=== PATIENT | male | born 1960 ===

== ENCOUNTER 2018-05-23 23:33 | Emergency (ER) | payer MEDICARE, MEDICAID ==
[2018-05-23 23:42] VITALS: BMI 33.3
[2018-05-23 23:52] VITALS: RESP 18
[2018-05-23] MEDS ORDERED: Sodium Chloride 0.9% 1,000 ML IV STA (23:59)
--- NOTE | 2018-05-24 00:03 | ED PDOC ---
Arrival/HPI - General Chief Complaint: High Blood Sugar Time Seen by Provider: 05/23/18 23:39 Historian: Patient - History of Present Illness Narrative History of Present Illness (Text): 05/23/18 23:58 57 year old male, whose past medical history includes diabetes on insulin, hypertension, and hyperlipidemia, presents to the emergency department complaining of elevated blood sugar today. Patient reports his sugar has been as high as 500. Patient also reports occassional dizziness, but denies any fever , chills, chest pain, shortness of breath,abdominal pain,vomiting, diarrhea, urinary symptoms, back pain, neck pain, headache, or any other complaints. PMD: Dr. Obrien Time/Duration: Other (today) Symptom Onset: Gradual Symptom Course: Unchanged Activities at Onset: Light Context: Home Past Medical History - Provider Review Nursing Documentation Reviewed: Yes - Cardiac Hx Hypertension: Yes - Musculoskeletal/Rheumatological Hx Arthritis: Yes - Psychiatric Hx Substance Use: No - Anesthesia Hx Anesthesia: No Family/Social History - Physician Review Nursing Documentation Reviewed: Yes Family/Social History: No Known Family HX Smoking Status: Never Smoked Hx Alcohol Use: Yes Frequency of alcohol use: Socially Hx Substance Use: No Allergies/Home Meds Allergies/Adverse Reactions: Allergies No Known Allergies Allergy (Verified 05/23/18 23:42) Review of Systems - Physician Review All systems were reviewed & negative as marked: Yes - Review of Systems Constitutional: absent: Fevers, Other (Chills) Respiratory: absent: SOB Cardiovascular: absent: Chest Pain Gastrointestinal: Nausea. absent: Diarrhea, Vomiting Genitourinary Male: absent: Dysuria, Frequency, Hematuria Musculoskeletal: Other (Malaise). absent: Back Pain, Neck Pain Neurological: Dizziness. absent: Headache Physical Exam Vital Signs Reviewed: Yes Vital Signs Temp Pulse Resp BP Pulse Ox 05/24/18 03:37 98 05/24/18 03:00 98.9 F 73 18 133/70 98 05/23/18 23:52 78 18 131/74 99 Blood Pressure: Normal Pulse: Regular Respiratory Rate: Normal Appearance: Positive for: Well-Appearing, Non-Toxic, Comfortable Pain Distress: None Mental Status: Positive for: Alert and Oriented X 3 Finger Stick Blood Glucose: 409 - Systems Exam Head: Present: Atraumatic, Normocephalic Pupils: Present: PERRL Extroacular Muscles: Present: EOMI Conjunctiva: Present: Normal Mouth: Present: Moist Mucous Membranes Neck: Present: Normal Range of Motion Respiratory/Chest: Present: Clear to Auscultation, Good Air Exchange. No: Respiratory Distress, Accessory Muscle Use Cardiovascular: Present: Regular Rate and Rhythm, Normal S1, S2. No: Murmurs Abdomen: No: Tenderness, Distention, Peritoneal Signs Back: Present: Normal Inspection Upper Extremity: Present: Normal Inspection. No: Cyanosis, Edema Lower Extremity: Present: Normal Inspection. No: Edema Neurological: Present: GCS=15, CN II-XII Intact, Speech Normal Skin: Present: Warm, Dry, Normal Color. No: Rashes Psychiatric: Present: Alert, Oriented x 3, Normal Insight, Normal Concentration Medical Decision Making ED Course and Treatment: 05/23/18 23:50 Impression: 57 year old male presents complaining of elevated blood sugar today associated with occasional dizziness. Plan: -- EKG -- Labs -- Chest X-ray -- IV Fluids, Humulin R -- Reassess and disposition Progress Notes: 05/24/18 01:24 CXR Impression: As read by me, no acute process. 05/24/18 03:14 EK G shows NSR at 67 BPM with acute changes. Interpreted by me. 05/24/18 03:23 On re-evaluation, patient feels better and is in no acute distress. I have discussed the results and plan with the patient, who expresses understanding. Patient in agreement with plan to be discharged home. Patient is stable for discharge. Patient was instructed to follow up with physician or return if symptoms worsen or new concerning symptoms arise. - Lab Interpretations Lab Results: 05/24/18 00:19 05/24/18 00:19 Lab Results 05/24/18 03:20: POC Glucose (mg/dL) 209 H 05/24/18 02:05: POC Glucose (mg/dL) 284 H 05/24/18 00:19: WBC 6.1, RBC 4.52, Hgb 13.7 L, Hct 39.9 L, MCV 88.3, MCH 30.3, MCHC 34.3, RDW 13.1, Plt Count 177, MPV 10.4 05/24/18 00:19: Sodium 136, Potassium 4.0, Chloride 104, Carbon Dioxide 21, Anion Gap 16, BUN 15, Creatinine 0.8, Est GFR ( Amer) > 60, Est GFR (Non- Af Amer) > 60, Random Glucose 454 H*, Calcium 9.3, Total Bilirubin 0.4, AST 25, ALT 27, Alkaline Phosphatase 112, Lactate Dehydrogenase 518, Total Creatine Kinase 123, Troponin I < 0.01, Total Protein 7.0, Albumin 4.1, Globulin 3.0, Albumin/Globulin Ratio 1.4 I have reviewed the lab results: Yes - RAD Interpretation Radiology Orders: 05/23/18 23:58 CHEST PORTABLE [RAD] Stat - EKG Interpretation Interpreted by ED Physician: Yes Type: 12 lead EKG - Medication Orders Current Medication Orders: Discontinued Medications Sodium Chloride (Sodium Chloride 0.9%) 1,000 mls @ 999 mls/hr IV .Q1H1M STA Stop: 05/24/18 00:59 Last Admin: 05/24/18 00:20 Dose: 999 mls/hr eMAR Start Stop Document 05/24/18 00:20 SS (Rec: 05/24/18 00:21 SS [id number]) Intravenous Solution Start Date 05/24/18 Start Time 00:20 End Date 05/24/18 End time 01:20 Total Infusion Time 60 Insulin Human Regular (Humulin R) 8 units SC STAT STA Stop: 05/24/18 00:55 - Scribe Statement The provider has reviewed the documentation as recorded by the Alissa Plasencia Provider Scribe Attestation: All medical record entries made by the Scribstanley were at my direction and personally dictated by me. I have reviewed the chart and agree that the record accurately reflects my personal performance of the history, physical exam, medical decision making, and the department course for this patient. I have also personally directed, reviewed, and agree with the discharge instructions and disposition. Disposition/Present on Arrival - Present on Arrival Any Indicators Present on Arrival: No History of DVT/PE: No History of Uncontrolled Diabetes: No Urinary Catheter: No History of Decub. Ulcer: No History Surgical Site Infection Following: None - Disposition Have Diagnosis and Disposition been Completed?: Yes Diagnosis: Diabetes mellitus Disposition: HOME/ ROUTINE Disposition Time: 03:21 Patient Plan: Discharge Condition: GOOD Discharge Instructions (ExitCare): Diabetes Diet , Diabetes Type 2 (DC) Additional Instructions: Maintain proper diabetic diet/continue your meds as prescribed/adjust your insulin dosage as instructed/follow up with your doctor this week Referrals: Rosana Obrien MD [Primary Care Provider] - Follow up with primary Forms: [employer] (Turkish)
[2018-05-24 00:39] LABS: HEMOGLOBIN 13.7 g/dL (14.0-18.0); MEAN CELL VOLUME 88.3 fl (80.0-105.0); MEAN CORPUSCULAR HEMOGLOBIN 30.3 pg (25.0-35.0); MEAN CORPUSCULAR HGB CONC 34.3 g/dl (31.0-37.0); MEAN PLATELET VOLUME 10.4 fl (7.0-11.0); RBC 4.52 10^6/uL (3.5-6.1); RED CELL DISTRIBUTION WIDTH 13.1 % (11.5-14.5); WHITE BLOOD COUNT 6.1 10^3/ul (4.5-11.0)
[2018-05-24 00:52] LABS: ALB/GLOB RATIO 1.4 (1.1-1.8); ALBUMIN 4.1 g/dL (3.0-4.8); ALT/SGPT 27 U/L (7-56); AST/SGOT 25 U/L (17-59); BLOOD UREA NITROGEN 15 mg/dL (7-21); CALCIUM 9.3 mg/dL (8.4-10.5); GFR NON-AFRICAN AMERICAN > 60
[2018-05-24] MEDS ORDERED: Insulin Regular 1 UNITS/0.01 ML ML SC STA (00:54)
[2018-05-24 00:56] LABS: TROPONIN I < 0.01 ng/mL
[2018-05-24 03:38] VITALS: BP 133/70; PULSE 73; TEMP 98.9; O2SAT 98
--- NOTE | 2018-05-24 08:36 | RAD ---
Date of service: 05/24/2018 HISTORY: fever COMPARISON: No prior. FINDINGS: LUNGS: No active pulmonary disease. PLEURA: No significant pleural effusion identified, no pneumothorax apparent. CARDIOVASCULAR: No radiographic findings to suggest acute or significant cardiovascular disease. OSSEOUS STRUCTURES: No significant abnormalities. VISUALIZED UPPER ABDOMEN: Normal. OTHER FINDINGS: None. IMPRESSION: No active disease.
--- NOTE | 2018-05-24 09:42 | CARD ---
APPROVED REPORT Date of service: 05/24/2018 EKG Measurement Heart [id number] <Conclusion> Normal sinus rhythm NSSTW changes
== END 2018-05-24 03:37 | disposition home or self-care (01) ==
LOC: MERGE 23:33 → ED 23:33
DX: E11.9 Type 2 diabetes mellitus without complications (principal); Z79.4 Long term (current) use of insulin; E78.5 Hyperlipidemia, unspecified; I10 Essential (primary) hypertension
CPT/HCPCS: 71045; 80053; 82550; 82948; 83615; 84484; 85027; 93005; 96360; 99284; J7030